=== PATIENT | female | born 1985 | race Caucasian/White ===

== ENCOUNTER 2018-07-25 20:13 | Emergency (ER) | payer BC, OTHER ==
[2018-07-25] MEDS ORDERED: HYDROmorphone 1 MG/ML Syringe IVPUSH ONE (20:51)
[2018-07-25] MEDS ORDERED: Ondansetron 4 MG/2 ML SDV IVPUSH ONE (20:55)
[2018-07-25] MEDS ORDERED: Sodium Chloride 0.9% 1,000 ML IV SCH (21:00)
--- NOTE | 2018-07-25 21:15 | EDM.PDOC ---
ED HPI GENERAL MEDICAL PROBLEM - General Chief Complaint: Upper Extremity Injury/Pain Stated Complaint: [facility] Time Seen by Provider: 07/25/18 20:50 Source of Information: Reports: Patient, Family (), RN Notes Reviewed History Limitations: Reports: No Limitations - History of Present Illness INITIAL COMMENTS - FREE TEXT/NARRATIVE: The patient states that she tripped and fell down some stairs at home around 19: 30, injuring her right shoulder. She believes she has dislocated her shoulder. She has dislocated her right shoulder countless times in the past, but this will be the second time since she had reparative surgery in 2012. She is otherwise uninjured. The patient has not taken any [id number] or home remedies to treat her pain, however, the patient was given 1 mg of Dilaudid and 4 mg of Zofran per EMS en route. The patient's last oral solid food was around 18:00. The patient's PCP is Dr. Tracy Pichardo. 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 per Dr. 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 ED EXAM, GENERAL - Physical Exam Exam: See Below Exam Limited By: No Limitations General Appearance: Alert, WD/WN, Mild Distress (appears to be in pain) Extremities: Other (The patient is holding her right upper extremity forward, with her elbow at approximately shoulder height. There is anterior fullness of the right shoulder, consistent with an anterior dislocation. Neurovascular status of the right upper extremity is intact.) ED TRAUMA EXTREMITY PROCEDURES - Joint Reduction Site: Shoulder (R) Sedation: Conscious Sedation (Versed + ketamine per Anesthesia) Pre-Procedure NV Status: Normal Post-Procedure NV Status: Normal Technique: Traction/Counter Traction Number of Attempts: 1 Post-Reduction Imaging: Completely Reduced, No Fracture Seen Joint Reduction Complications: No Course - Vital Signs Last Recorded V/S: Last Vital Signs Temp 36.6 C 07/25/18 22:06 Pulse 87 07/25/18 22:06 Resp 16 07/25/18 22:06 BP 131/84 07/25/18 22:06 Pulse Ox 97 07/25/18 22:06 - Orders/Labs/Meds Orders: Active Orders 24 hr Category Date Time Status Shoulder Comp Rt [CR] Stat Exams 07/25/18 20:49 Taken Sodium Chloride 0.9% [Normal Saline] 1,000 ml Med 07/25/18 21:00 Active IV ASDIRECTED Medication Orders Sodium Chloride (Normal Saline) 1,000 mls @ 100 mls/hr IV ASDIRECTED KAM Last Admin: 07/25/18 21:21 Dose: 100 mls/hr Meds: Medications Generic Name Dose Route Start Last Admin Trade Name Freq PRN Reason Stop Dose Admin Sodium Chloride 1,000 mls @ 100 mls/hr 07/25/18 21:00 07/25/18 21:21 Normal Saline IV 100 mls/hr ASDIRECTED KAM Administration Discontinued Medications Generic Name Dose Route Start Last Admin Trade Name Freq PRN Reason Stop Dose Admin Fentanyl Confirm 07/25/18 21:53 Sublimaze Administered 07/25/18 21:54 Dose 100 mcg .ROUTE .STK-MED ONE Hydromorphone HCl 1 mg 07/25/18 20:51 07/25/18 20:57 Dilaudid IVPUSH 07/25/18 20:52 1 mg ONETIME ONE Administration Ketamine HCl Confirm 07/25/18 21:54 Ketalar Administered 07/25/18 21:55 Dose 500 mg .ROUTE .STK-MED ONE Midazolam HCl Confirm 07/25/18 21:53 Versed 1 Mg/Ml Administered 07/25/18 21:54 Dose 4 mg .ROUTE .STK-MED ONE Ondansetron HCl 4 mg 07/25/18 20:55 07/25/18 21:21 Zofran IVPUSH 07/25/18 20:56 4 mg ONETIME ONE Administration Propofol Confirm 07/25/18 21:53 Diprivan 20 Ml Administered 07/25/18 21:54 Dose 200 mg .ROUTE .STK-MED ONE Succinylcholine Chloride Confirm 07/25/18 21:52 Succinylcholine In Ns Pf Administered 07/25/18 21:53 Dose 100 mg .ROUTE .STK-MED ONE - Re-Assessments/Exams Free Text/Narrative Re-Assessment/Exam: 07/25/18 21:21 3-view radiographs of the right shoulder appear to demonstrate complete anterior dislocation. No fracture identified. Formal read per the Radiologist pending. 07/25/18 22:32 Terri HANNAH was contacted and came in to perform sedation. The patient was sedated with Versed and ketamine, to good effect. The patient's right shoulder was then reduced using the traction/countertraction method, which she tolerated well. Post-procedure trace of the right shoulder appear to demonstrate complete reduction of the shoulder with no Hill-Sachs fracture identified. The patient will be placed into a right arm sling and swath, and discharged home once she has adequately recovered. She may take OTC ibuprofen as needed for discomfort. We will then have her follow-up with her Orthopedic Surgeon, Dr. Ramon Azul. Departure - Departure Time of Disposition: 22:33 Disposition: Home, Self-Care 01 Condition: Good Clinical Impression: Recurrent dislocation, right shoulder - Discharge Information *PRESCRIPTION DRUG MONITORING PROGRAM REVIEWED*: Not Applicable *COPY OF PRESCRIPTION DRUG MONITORING REPORT IN PATIENT ZOYA: Not Applicable Referrals: Tracy Pichardo MD [Primary Care Provider] - Ramon Azul MD [Physician] - Forms: ED Department Discharge Additional Instructions: You were seen in the emergency room after falling downstairs and injuring your right shoulder. Workup in the ER included x-rays of your right shoulder, which confirmed that you dislocated your right shoulder. Your right shoulder was reduced (put back in place) under sedation. Post-procedure x-rays show good position of your shoulder, with no fracture. Your right arm has been placed into a shoulder sling and swath. Take [id number] ibuprofen, 2-3 tablets (400-600 mg) every 8 hours, with food, as needed for discomfort. Follow-up with your Orthopedic Surgeon, Dr. Ramon Azul, at the next available appointment. If any other problems, please do not hesitate to return to the ER. - My Orders Last 24 Hours: My Active Orders 07/25/18 21:00 Sodium Chloride 0.9% [Normal Saline] 1,000 ml IV ASDIRECTED - Assessment/Plan Last 24 Hours: My Active Orders 07/25/18 21:00 Sodium Chloride 0.9% [Normal Saline] 1,000 ml IV ASDIRECTED
--- NOTE | 2018-07-25 21:47 | PCM.PREANE ---
Preanesthetic Assessment - Anesthesia/Transfusion/Family Hx Anesthesia History: Prior Anesthesia Without Reaction Family History of Anesthesia Reaction: No Transfusion History: No Prior Transfusion(s) Intubation History: Unknown - Review of Systems General: No Symptoms Pulmonary: No Symptoms Cardiovascular: No Symptoms Gastrointestinal: No Symptoms Neurological: No Symptoms, Numbness (right affected hand) Other: Reports: Easy Bruising, Anxiety - Physical Assessment NPO Status Date: 07/25/18 NPO Status Time: 18:00 Pulse: 87 O2 Sat by Pulse Oximetry: 97 Respiratory Rate: 16 Blood Pressure: 131/84 Temperature: 36.6 C Vital Signs: Last Vital Signs Temp 36.6 C 07/25/18 20:16 Pulse 87 07/25/18 20:16 Resp 16 07/25/18 20:16 BP 131/84 07/25/18 20:16 Pulse Ox 97 07/25/18 20:16 Height: 1.63 m Weight: 90.718 kg ASA Class: 1E Mental Status: Alert & Oriented x3 Airway Class: Mallampati = 2 Dentition: Reports: Normal Dentition, Caries Thyro-Mental Finger Breadths: 3 Mouth Opening Finger Breadths: 3 ROM/Head Extension: Full Lungs: Clear to Auscultation, Normal Respiratory Effort Cardiovascular: Regular Rate, Regular Rhythm, No Murmurs - Lab Values: Patient states she is absolutely not . Patient refuses HCG due to control via visectomy. 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 per Dr. Ramon Azul, 2013) - SUBSTANCE USE Smoking Status *Q: Never Smoker Recreational Drug Use History: No - HOME MEDS Home Medications: Home Meds Multivitamin [Multivitamins] 1 each PO DAILY 07/25/18 [History] - CURRENT (IN HOUSE) MEDS Current Meds: Current Medications Sodium Chloride (Normal Saline) 1,000 mls @ 100 mls/hr IV ASDIRECTED [facility] Last Admin: 07/25/18 21:21 Dose: 100 mls/hr Discontinued Medications Hydromorphone HCl (Dilaudid) 1 mg IVPUSH ONETIME ONE Stop: 07/25/18 20:52 Last Admin: 07/25/18 20:57 Dose: 1 mg Ondansetron HCl (Zofran) 4 mg IVPUSH ONETIME ONE Stop: 07/25/18 20:56 Last Admin: 07/25/18 21:21 Dose: 4 mg
[2018-07-25] MEDS ORDERED: Succinylcholine/Normal Saline 100 MG/5 ML Syringe ONE (21:52)
[2018-07-25] MEDS ORDERED: fentaNYL 100 MCG/2 ML SDV ONE (21:53)
[2018-07-25] MEDS ORDERED: Propofol 200 MG/20 ML SDV ONE (21:53)
[2018-07-25] MEDS ORDERED: Midazolam 1 MG/ML 2 ML SDV ONE (21:53)
[2018-07-25] MEDS ORDERED: Ketamine 500 mg/10 ML MDV ONE (21:54)
--- NOTE | 2018-07-25 22:33 | PCM48HPAN ---
Post Anesthesia Note - EVALUATION WITHIN 48HRS OF ANESTHETIC Vital Signs in Normal Range: Yes Patient Participated in Evaluation: Yes Respiratory Function Stable: Yes Airway Patent: Yes Cardiovascular Function Stable: Yes Hydration Status Stable: Yes Pain Control Satisfactory: Yes Nausea and Vomiting Control Satisfactory: Yes Mental Status Recovered: Yes Pulse Rate: 87 SaO2: 100 Resp Rate: 16 Temperature: 36.6 C Blood Pressure: 131/84 Pulse Rate: 111
--- NOTE | 2018-07-26 07:17 | CR ---
Right shoulder: Three views of the right shoulder were obtained. Comparison: Previous right shoulder exam of 07/21/11. Anterior shoulder dislocation is seen. No discrete fracture or other abnormality is seen. Impression: 1. Anterior shoulder dislocation. Diagnostic code #3
--- NOTE | 2018-07-26 07:17 | CR ---
Right shoulder: Two views of the right shoulder were obtained. Comparison: Prior shoulder study performed earlier the same day (9:15 PM). Previous dislocation has been reduced. Small lucencies are seen within the glenoid presumably from prior surgery. No acute fracture is seen. Previous dislocation has been reduced. Impression: 1. Previous dislocation has been reduced. 2. Findings suspicious for previous right shoulder surgery. Diagnostic code #2
== END 2018-07-25 23:19 | disposition home or self-care (01) ==
LOC: JD.ED 20:13
DX: M24.411 Recurrent dislocation, right shoulder (principal); W10.9XXA Fall (on) (from) unspecified stairs and steps, initial encounter; Y92.009 Unspecified place in unspecified non-institutional (private) residence as the place of occurrence of the external cause
CPT/HCPCS: 23650; 73030; 96361; 96374; 96375; 99152; 99153; 99284; J1170; J2250; J2405; J7040; 01620; 23655; 99283; J0330; J2704; J3010

== ENCOUNTER 2021-06-01 10:53 | Emergency (ER) | payer OTHER ==
[2021-06-01] MEDS ORDERED: HYDROmorphone 1 MG/ML Syringe IVPUSH ONE (11:04)
[2021-06-01] MEDS ORDERED: Sodium Chloride 0.9% 10 ML Syringe FLUSH PRN (11:04)
--- NOTE | 2021-06-01 11:10 | EDM.PDOC ---
ED HPI GENERAL MEDICAL PROBLEM - General Chief Complaint: Upper Extremity Injury/Pain Stated Complaint: [facility] Time Seen by Provider: 06/01/21 10:58 Source of Information: Reports: Patient, RN Notes Reviewed History Limitations: Reports: No Limitations - History of Present Illness INITIAL COMMENTS - FREE TEXT/NARRATIVE: Patient is a 35-year-old female who is brought in by [facility] ambulance service for the evaluation of her right shoulder dislocation. Patient states that she was holding a coffee cup carrier in the center console of her car, when she sneezed and felt her shoulder slipped out of joint. Patient has a pretty extensive history of this particular shoulder being dislocated, and she has had multiple surgeries and dislocations in the past. Patient states that her arm feels most comfortable when it is abducted from that side, straight out. Says typically that when this dislocates in the past, her arm is more in a "chicken wing" fashion. States that she thinks it might be just partially dislocated. Having a little bit of numbness/tingling to the area but otherwise has good pulses and sensation. Patient denies any other sick-like symptoms, fever/chills, cough/shortness of breath, nausea/vomiting/diarrhea. Patient last ate some sausage at around 8 AM, and a little bit of water through yoga class from 9-10. 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 ED EXAM, GENERAL - Physical Exam Exam: See Below Exam Limited By: No Limitations General Appearance: Alert, WD/WN, No Apparent Distress Respiratory/Chest: No Respiratory Distress, Lungs Clear, Normal Breath Sounds, No Accessory Muscle Use, Chest Non-Tender Cardiovascular: Normal Peripheral Pulses, Regular Rate, Rhythm, No Edema Peripheral Pulses: 2+: Radial (L), Radial (R) Extremities: Normal Inspection, Normal Capillary Refill, Limited Range of Motion (of right arm; pt has her arm fully abducted out to her side and it is being supported by the bed.) Neurological: Alert, Oriented, Normal Cognition Psychiatric: Normal Affect, Normal Mood Skin Exam: Warm, Dry, Intact, Normal Color, No Rash ED TRAUMA EXTREMITY PROCEDURES - Joint Reduction Right Shoulder Sedation: Conscious Sedation (timeout was performed prior to reduction with Aneta Urias RN) Pre-Procedure NV Status: Normal Post-Procedure NV Status: Normal Technique: Traction/Counter Traction Number of Attempts: 1 Post-Reduction Imaging: Completely Reduced Joint Reduction Complications: No Progress/Comments: Time out performed prior to reduction Course - Vital Signs Last Recorded V/S: Last Vital Signs Temp 98.2 F 06/01/21 10:54 Pulse 110 H 06/01/21 10:54 Resp 16 06/01/21 10:54 BP 144/94 H 06/01/21 10:54 Pulse Ox 98 06/01/21 10:54 - Orders/Labs/Meds Orders: Active Orders 24 hr Category Date Time Status Peripheral IV Care [RC] . DIRECTED Care 06/01/21 11:05 Active Sodium Chloride 0.9% [Saline Flush] Med 06/01/21 11:04 Active 10 ml FLUSH ASDIRECTED PRN DME for Discharge [COMM] Routine Oth 06/01/21 11:18 Ordered Peripheral IV Insertion Adult [OM.PC] Routine Oth 06/01/21 11:04 Ordered Medication Orders Sodium Chloride (Sodium Chloride 0.9% 10 Ml Syringe) 10 ml FLUSH ASDIRECTED PRN PRN Reason: Keep Vein Open Last Admin: 06/01/21 11:36 Dose: 10 ml Documented by: MARILIN Meds: Medications Generic Name Dose Route Start Last Admin Trade Name Haider PRN Reason Stop Dose Admin Sodium Chloride 10 ml 06/01/21 11:04 06/01/21 11:36 Sodium Chloride 0.9% 10 Ml Syringe FLUSH 10 ml ASDIRECTED PRN Administration Keep Vein Open Discontinued Medications Generic Name Dose Route Start Last Admin Trade Name Haider PRN Reason Stop Dose Admin Hydromorphone HCl 1 mg 06/01/21 11:04 06/01/21 11:34 Hydromorphone 1 Mg/Ml Syringe IVPUSH 06/01/21 11:05 1 mg ONETIME ONE Administration Sodium Chloride Confirm 06/01/21 11:29 Normal Saline Administered 06/01/21 11:30 Dose 1,000 mls @ as directed .ROUTE .STK-MED ONE Orphenadrine Citrate 100 mg 06/01/21 12:10 06/01/21 12:13 Orphenadrine 100 Mg Tab.Er PO 06/01/21 12:11 100 mg ONETIME ONE Administration Propofol 225 mg 06/01/21 11:15 06/01/21 11:47 Propofol 200 Mg/20 Ml Sdv IVPUSH 06/01/21 11:16 160 mg ONETIME ONE Administration - Re-Assessments/Exams Free Text/Narrative Re-Assessment/Exam: 06/01/21 11:12 Patient presents to the ER for the evaluation of her possible right shoulder dislocation, this does look like a partial right shoulder dislocation, informed consent was signed and shoulder reduction will likely be performed by myself and Dr. Anderson in the ER if time allows. 06/01/21 12:14 Reduction was performed by myself and Dr. Anderson, he did give the propofol medication and reduction was performed by myself. Patient's pain has drastically improved. She states that it is still somewhat tender, and I believe she was having some muscle spasms prior to the reduction. She is A&O x 3 and does not appear sedated. She is able to flex and extend her wrists with no difficulties, abduct/abduct her fingers, and perform the thumb hiker sign. She has no sensory deficits noted along the lateral aspect of the right upper and lower arm. She is ready be discharged home. Return precautions were discussed with the patient. She had no further questions or concerns and agreed with plan. We will try oral Norflex to see if this helps relieve some of the discomfort. Patient was given 0.5 mg IV via Dilaudid prior to the reduction. 06/01/21 12:42 Postreduction films were reviewed by myself and Dr. Anderson and shoulder appears to be within joint again, and radiologist does confirm this. Patient is feeling better we will get her discharged home. Departure - Departure Time of Disposition: 11:25 Disposition: Home, Self-Care 01 Condition: Good Clinical Impression: Shoulder dislocation, recurrent Qualifiers: Laterality: right Qualified Code(s): M24.411 - Recurrent dislocation, right shoulder - Discharge Information *PRESCRIPTION DRUG MONITORING PROGRAM REVIEWED*: No *COPY OF PRESCRIPTION DRUG MONITORING REPORT IN PATIENT ZOYA: No Instructions: Moderate Conscious Sedation, Adult, Care After, Shoulder Dislocation, [id number] Forms: ED Department Discharge Additional Instructions: You have been evaluated in the ED for your right shoulder dislocation. Your x-ray demonstrated that your shoulder was partially dislocated, and this has been reduced in the ER without complications. You have been given a sling to keep your arm immobilized for at least 1 week, or you can follow-up with orthopedics for further management/evaluation. Please use ice as tolerated to the affected area. Please try to elevate the affected area to relieve swelling. You may take Tylenol 500 mg or ibuprofen 600mg q6 hrs for pain relief. Please do so until you have a tolerable level of pain with activity. Do not exceed 4000mg Tylenol or 3200mg ibuprofen in a 24 hour time period. Please call your orthopedic provider tomorrow, 06/02/2021 for ongoing management. Please return to ED if your symptoms should change or worsen. Sepsis Event Note (ED) - Evaluation Sepsis Screening Result: No Definite Risk - Focused Exam Vital Signs: Vital Signs Temp Pulse Resp BP Pulse Ox 06/01/21 10:54 98.2 F 110 H 16 144/94 H 98 - My Orders Last 24 Hours: My Active Orders 06/01/21 11:04 Sodium Chloride 0.9% [Saline Flush] 10 ml FLUSH ASDIRECTED PRN Peripheral IV Insertion Adult [OM.PC] Routine 06/01/21 11:05 Peripheral IV Care [RC] . DIRECTED 06/01/21 11:18 DME for Discharge [COMM] Routine - Assessment/Plan Last 24 Hours: My Active Orders 06/01/21 11:04 Sodium Chloride 0.9% [Saline Flush] 10 ml FLUSH ASDIRECTED PRN Peripheral IV Insertion Adult [OM.PC] Routine 06/01/21 11:05 Peripheral IV Care [RC] . DIRECTED 06/01/21 11:18 DME for Discharge [COMM] Routine
[2021-06-01] MEDS ORDERED: Propofol 200 MG/20 ML SDV IVPUSH ONE (11:15)
[2021-06-01] MEDS ORDERED: Sodium Chloride 0.9% 1,000 ML ONE (11:29)
--- NOTE | 2021-06-01 11:56 | CR ---
Right shoulder: 2 views of the right shoulder were obtained. Comparison: Prior right shoulder study of 07/25/18. Anterior dislocated shoulder is noted. Acromioclavicular joint is normal. No other bony abnormality is definitely appreciated. Impression: 1. Anterior dislocated right shoulder. Diagnostic code #3
[2021-06-01] MEDS ORDERED: Orphenadrine 100 MG Tab.ER PO ONE (12:10)
--- NOTE | 2021-06-01 12:39 | CR ---
Right shoulder: AP and wide scapular view was obtained of the right shoulder. Comparison: Prior shoulder study performed earlier on the same date (11:15 AM). Previous dislocation has been reduced. No discrete fracture or other bony abnormality is seen. Impression: 1. Normal right shoulder study. 2. Previous dislocation has been reduced. Diagnostic code #1
== END 2021-06-01 12:55 | disposition home or self-care (01) ==
LOC: JD.ED 10:53
DX: M24.411 Recurrent dislocation, right shoulder (principal)
CPT/HCPCS: 23650; 73030; 96374; 99284; A9270; J1170; J2704; 99283